=== PATIENT | male | born 1955 | race Caucasian/White ===

== ENCOUNTER 2020-05-08 12:29 | Emergency (ER) | payer SELFPAY ==
[2020-05-08 14:20] VITALS: BP 157/88
== END 2020-05-08 14:20 | disposition home or self-care (01) ==
LOC: ED 12:29
DX: S93.401A Sprain of unspecified ligament of right ankle, initial encounter (principal); W12.XXXA Fall on and from scaffolding, initial encounter; Y93.89 Activity, other specified; Y92.89 Other specified places as the place of occurrence of the external cause; Y99.8 Other external cause status
CPT/HCPCS: Q0092